=== PATIENT | female | born 2000 | race Hispanic/Latino ===

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

== ENCOUNTER 2022-10-12 23:52 | Emergency (ER) | payer MEDICAID ==
[~2022-10-12] VITALS: Ht 170.2 cm; Wt 81.8 kg
[~2022-10-12 23:52] MED LIST changes: +KEFLEX500 MG PO; +NAPROXEN250 MG PO
[2022-10-13 00:12] VITALS: BP 154/99
[2022-10-13 00:15] VITALS: BP 153/98
[2022-10-13 00:30] VITALS: BP 132/87
[2022-10-13 00:45] VITALS: BP 136/94
[2022-10-13 00:50] VITALS: BP 136/94
[2022-10-13] MEDS ORDERED: VOLTAREN75 MG PO (00:51)
== END 2022-10-13 01:00 | disposition home or self-care (01) ==
LOC: ED 23:52
DX: G90.01 Carotid sinus syncope (principal)

== ENCOUNTER 2023-08-02 13:03 | Emergency (ER) | payer SELFPAY ==
[~2023-08-02] VITALS: Ht 170.2 cm; Wt 77.1 kg
[2023-08-02] VITALS (10 sets, daily range): BP systolic 103–123; BP diastolic 41–72
[~2023-08-02 13:03] MED LIST changes: +VOLTAREN75 MG PO
[2023-08-02 14:52] LABS: URINE BILIRUBIN - DIPSTICK Negative (NEGATIVE); URINE BLOOD DIPSTICK Small (NEGATIVE); URINE GLUCOSE - DIPSTICK Negative (NEGATIVE); URINE KETONE Negative (NEGATIVE); URINE PH 5.5 (4.5-8.0); URINE PROTEIN - DIPSTICK Negative (NEG-TRACE); URINE SPECIFIC GRAVITY 1.025; URINE UROBILINOGEN - DIPSTICK 0.2 E.U./dL (0.2)
[2023-08-02 14:53] LABS: URINE COLOR Yellow; URINE LEUK ESTERASE Moderate (NEGATIVE); URINE NITRITE - DIPSTICK Positive (Negative)
[2023-08-02 14:54] LABS: URINE BACTERIA MANY hpf; URINE EPITHELIAL CELLS MODERATE EPI/hpf (0-FEW)
[2023-08-02] MEDS ORDERED: KEFLEX500 MG PO (15:25)
== END 2023-08-02 15:55 | disposition home or self-care (01) | DRG 690 ==
LOC: ED 13:03
PROVIDERS: Nurse Practitioner
DX: N39.0 Urinary tract infection, site not specified (principal)